=== PATIENT | female | born 1995 | race Caucasian/White ===

== ENCOUNTER 2020-08-20 19:31 | Emergency (ER) | payer SELFPAY ==
[~2020-08-20] VITALS: Ht 170.2 cm; Wt 61.2 kg
[2020-08-20 20:11] VITALS: BP 127/88
[2020-08-20] MEDS ORDERED: IBUPROFEN 400 MG TAB PO ONE (22:05)
[2020-08-20 22:23] VITALS: BP 125/77
== END 2020-08-20 22:23 | disposition home or self-care (01) ==
LOC: MED 19:31
DX: S93.401A Sprain of unspecified ligament of right ankle, initial encounter (principal); W22.8XXA Striking against or struck by other objects, initial encounter; Y93.89 Activity, other specified; Y92.89 Other specified places as the place of occurrence of the external cause; Y99.8 Other external cause status
CPT/HCPCS: 73610; 99283

== ENCOUNTER 2021-01-01 13:33 | Emergency (ER) | payer MEDICAID ==
[~2021-01-01] VITALS: Ht 167.6 cm; Wt 65.8 kg
[2021-01-01 13:44] VITALS: BP 133/80
[2021-01-01] MEDS ORDERED: AZIT250T4 PO (14:43)
[2021-01-01] MEDS ORDERED: PROM118S5 PO (14:43)
[2021-01-01] MEDS ORDERED: IBUP-2213 PO (14:43)
[2021-01-01 15:02] VITALS: BP 133/80
--- NOTE | 2021-01-01 15:03 | NUR ---
Patient discharged with v/s stable. Written and verbal after care instructions given and explained. Patient alert, oriented and verbalized understanding of instructions. Ambulatory with steady gait. All questions addressed prior to discharge. ID band removed. Patient advised to follow up with PMD. Rx of AZITHROMYCIN, IBUPROFEN, PROMETHAZINE/DEXTROMETHORPHAN given. Patient educated on indication of medication including possible reaction and side effects. Opportunity to ask questions provided and answered.
== END 2021-01-01 15:03 | disposition home or self-care (01) ==
LOC: MED 13:33
DX: J06.9 Acute upper respiratory infection, unspecified (principal); J45.909 Unspecified asthma, uncomplicated; Z79.1 Long term (current) use of non-steroidal anti-inflammatories (NSAID); Z79.899 Other long term (current) drug therapy; Z79.2 Long term (current) use of antibiotics; Z88.8 Allergy status to other drugs, medicaments and biological substances
CPT/HCPCS: 71045; 99283

== ENCOUNTER 2021-06-17 20:12 | Emergency (ER) | payer OTHER ==
[~2021-06-17] VITALS: Ht 167.6 cm; Wt 68.0 kg
[~2021-06-17 20:12] MED LIST: AZIT250T4 PO; IBUP-2213 PO; PROM118S5 PO
[2021-06-17 20:19] VITALS: BP 138/74
--- NOTE | 2021-06-17 20:26 | NUR ---
TO LOBBY FOLLOWING TRIAGE
[2021-06-17] MEDS ORDERED: KETOROLAC 15 MG/ML VIAL IM ONE (21:10)
--- NOTE | 2021-06-17 21:57 | NUR ---
PATIENT ELOPED FROM FACILITY. DISCHARGE INSTRUCTIONS NOT GIVEN TO PATIENT. DR. TURK NOTIFIED.
== END 2021-06-17 21:57 | disposition left against medical advice (07) ==
LOC: MED 20:12
DX: S29.9XXA Unspecified injury of thorax, initial encounter (principal); S39.91XA Unspecified injury of abdomen, initial encounter; M25.512 Pain in left shoulder; M25.562 Pain in left knee; V98.8XXA Other specified transport accidents, initial encounter; Y93.89 Activity, other specified; Y92.89 Other specified places as the place of occurrence of the external cause; Y99.8 Other external cause status
CPT/HCPCS: 99281

== ENCOUNTER 2021-06-24 22:14 | Emergency (ER) | payer OTHER ==
[~2021-06-24] VITALS: Ht 167.6 cm; Wt 70.3 kg
[2021-06-24 22:16] VITALS: BP 123/75
--- NOTE | 2021-06-24 22:25 | NUR ---
PT AMBULATORY W STEADY GAIT TO BED 11.
--- NOTE | 2021-06-24 22:33 | NUR ---
Dr. Encarnacion examining patient.
--- NOTE | 2021-06-24 22:47 | NUR ---
PT TAKEN TO CT
[2021-06-25 00:02] VITALS: BP 123/75
--- NOTE | 2021-06-25 00:53 | NUR ---
Patient discharged with v/s stable. Written and verbal after care instructions given and explained. Patient verbalized understanding. Ambulatory with steady gait. All questions addressed prior to discharge. Advised to follow up with PMD.
== END 2021-06-25 00:53 | disposition home or self-care (01) ==
LOC: MED 22:14
DX: S09.90XA Unspecified injury of head, initial encounter (principal); F07.81 Postconcussional syndrome; J45.909 Unspecified asthma, uncomplicated; Z79.1 Long term (current) use of non-steroidal anti-inflammatories (NSAID); Z79.899 Other long term (current) drug therapy; Z79.2 Long term (current) use of antibiotics; Z88.8 Allergy status to other drugs, medicaments and biological substances; V47.5XXA Car driver injured in collision with fixed or stationary object in traffic accident, initial encounter; Y93.89 Activity, other specified; Y92.410 Unspecified street and highway as the place of occurrence of the external cause; Y99.8 Other external cause status
CPT/HCPCS: 70450; 99284

== ENCOUNTER 2022-06-24 13:13 | Emergency (ER) | payer OTHER ==
[~2022-06-24] VITALS: Ht 167.6 cm; Wt 72.6 kg
[2022-06-24 13:27] VITALS: BP 121/71
[2022-06-24] MEDS ORDERED: KETOROLAC 15 MG/ML VIAL IVP ONE (14:40)
[2022-06-24] MEDS ORDERED: PROCHLORPERAZINE 10 MG/2 ML VIAL IVP ONE (14:40)
[2022-06-24] MEDS ORDERED: NACL 0.9% 1,000 ML IV ONE (14:40)
[2022-06-24] MEDS ORDERED: DEXAMETHASONE 10 MG/ML VIAL IVP ONE (14:40)
[2022-06-24] MEDS ORDERED: diphenhydrAMINE 50 MG/ML VIAL IVP ONE (14:40)
[2022-06-24] MEDS ORDERED: LORazepam 2 MG/ML VIAL IVP ONE (15:35)
--- NOTE | 2022-06-24 16:01 | NUR ---
27 y/o F BIB self from home c/o headache x 4 days. Patient A&Ox4, ambulatory, states chronic headache s/p TC 1 year ago. States intermittent headache, 9/10, throbbing/pressure/intermittent, non-radiating. Alleviating factors ice packs. Aggrevating factors "driving, light." Pt reports nausea, vomiting x 2 episodes in last 2 days. +Light sensitivity. Denies recent trauma, injury, falls, fever, cough, SOB, chest pain, abdominal pain, diarrhea, constipation, dysuria. Denies OTC meds. Bed locked in lowest position, side rails x 1. PMH: asthma Meds: albuterol inhaler, naproxen Allergies: reglan Sx: Denies
--- NOTE | 2022-06-24 16:22 | NUR ---
Patient states + relief to headache; 5/10 at this time.
--- NOTE | 2022-06-24 16:34 | NUR ---
Dr. Fonseca reevaluating patient at bedside
[2022-06-24 17:00] VITALS: BP 116/79
== END 2022-06-24 17:00 | disposition home or self-care (01) ==
LOC: MED 13:13
DX: R51.9 Headache, unspecified (principal); R11.10 Vomiting, unspecified; J45.909 Unspecified asthma, uncomplicated; Z79.899 Other long term (current) drug therapy; Z79.1 Long term (current) use of non-steroidal anti-inflammatories (NSAID); Z79.2 Long term (current) use of antibiotics; Z88.8 Allergy status to other drugs, medicaments and biological substances
CPT/HCPCS: 81025; 96361; 96374; 96375; 99284; J0780; J1100; J1200; J1885; J2060; J7030

== ENCOUNTER 2022-12-10 08:35 | Emergency (ER) | payer OTHER ==
[~2022-12-10] VITALS: Ht 167.6 cm; Wt 72.6 kg
[2022-12-10 08:42] VITALS: BP 114/78; PULSE 78; RESP 16; TEMP 98.3; O2SAT 97
[2022-12-10 10:31] LABS: BASOPHILS # (AUTO) 0.1 K/uL (0.00-0.22); BASOPHILS % (AUTO) 0.7 % (0.0-2.0); EOSINOPHILS % (AUTO) 0.3 % (0.0-4.0); HEMATOCRIT 40.3 % (36-48); HEMOGLOBIN 13.8 g/dL (12.0-16.0); LYMPHOCYTES % (AUTO) 25.2 % (20.5-51.1); MEAN CORPUSCULAR HEMOGLOBIN 30 pg (27-31); MEAN CORPUSCULAR HGB CONC 34 g/dL (33-37); MONOCYTES # (AUTO) 0.6 K/uL (0.8-1.0); MONOCYTES % (AUTO) 7.1 % (1.7-9.3); NEUTROPHILS # (AUTO) 5.4 K/uL (1.8-7.7); NEUTROPHILS % (AUTO) 66.7 % (42.2-75.2); PLATELET COUNT (AUTO) 301 K/uL (140-450); RED BLOOD CELL COUNT(AUTO) 4.58 MIL/uL (4.20-5.40); RED CELL DISTRIBUTION WIDTH 12.8 % (11.6-13.7); WHITE BLOOD COUNT (AUTO) 8.1 K/uL (4.8-10.8)
[2022-12-10 10:47] LABS: ALBUMIN 4.3 g/dL (3.4-5.0); ANION GAP 14.6 (8-16); CALCIUM 9.3 mg/dL (8.5-10.1); CARBON DIOXIDE 24.9 mmol/L (21-32); CREATININE 0.9 mg/dL (0.6-1.3); POTASSIUM 3.5 mmol/L (3.5-5.1); TOTAL BILIRUBIN 0.8 mg/dL (0.0-1.0); TOTAL PROTEIN, SERUM 7.6 g/dL (6.4-8.2)
[2022-12-10] MEDS ORDERED: NACL 0.9% 1,000 ML IV ONE (10:55)
[2022-12-10] MEDS ORDERED: ONDANSETRON 4 MG/2 ML VIAL IVP ONE (10:55)
[2022-12-10] MEDS ORDERED: ACETAMINOPHEN 325 MG TAB ONE ×2 (11:56→11:57)
[2022-12-10] MEDS ORDERED: ONDA-188 SL (12:05)
[2022-12-10] MEDS ORDERED: ACET-10509 PO (12:05)
[2022-12-10] MEDS ORDERED: [UNRECOGNIZED DRUG - CODE] PO (12:05)
[2022-12-10] MEDS ORDERED: DOXY1TAB4 PO (12:05)
[2022-12-10 12:22] VITALS: BP 118/92; PULSE 84; RESP 13; TEMP 98.5; O2SAT 100
[2022-12-10] MEDS ORDERED: ACETAMINOPHEN 325 MG TAB PO ONE (12:25)
== END 2022-12-10 12:20 | disposition home or self-care (01) ==
LOC: MED 08:35
DX: O21.8 Other vomiting complicating pregnancy (principal); O99.511 Diseases of the respiratory system complicating pregnancy, first trimester; J45.909 Unspecified asthma, uncomplicated; Z3A.01 Less than 8 weeks gestation of pregnancy; Z79.899 Other long term (current) drug therapy; Z79.1 Long term (current) use of non-steroidal anti-inflammatories (NSAID); Z79.2 Long term (current) use of antibiotics
CPT/HCPCS: 36415; 76817; 80053; 81002; 81025; 83690; 84702; 85025; 86900; 86901; 96361; 96374; 99285; J2405; Q0092; J7030

== ENCOUNTER 2022-12-15 14:17 | Inpatient (IN) | payer OTHER ==
[~2022-12-15] VITALS: Ht 170.2 cm; Wt 75.7 kg
[~2022-12-15 14:17] MED LIST changes: +ACET-10509 PO; +DOXY1TAB4 PO; +ONDA-188 SL; +[UNRECOGNIZED DRUG - CODE] PO
[2022-12-15 14:26] VITALS: BP 112/82; PULSE 81; RESP 17; TEMP 97.6; O2SAT 98
[2022-12-15] MEDS ORDERED: DEXT 5% / NACL 0.9% 500 ML IV ONE ×2 (15:45→18:55)
[2022-12-15] MEDS ORDERED: ONDANSETRON 4 MG/2 ML VIAL IVP ONE ×2 (15:45→17:30)
[2022-12-15] MEDS ORDERED: NACL 0.9% 1,000 ML IV ONE (15:45)
[2022-12-15 16:03] LABS: APPEARANCE,URINE CLEAR (CLEAR); BILIRUBIN,URINE 1+ (NEGATIVE); BLOOD, URINE NEGATIVE (NEGATIVE); COLOR,URINE YELLOW (YELLOW); LEUKOCYTE ESTERASE ,URINE NEGATIVE (NEGATIVE); NITRITE, URINE NEGATIVE (NEGATIVE); PH,URINE 7.5 (5.0-9.0); PROTEIN,URINE TRACE (NEGATIVE); UGLUCOSE NEGATIVE (NEGATIVE); UROBILINOGEN,URINE 0.2 EU/dL (0.2 - 1)
[2022-12-15 16:04] LABS: BASOPHILS # (AUTO) 0.1 K/uL (0.00-0.22); BASOPHILS % (AUTO) 0.6 % (0.0-2.0); EOSINOPHILS % (AUTO) 0.2 % (0.0-4.0); HEMATOCRIT 39.5 % (36-48); HEMOGLOBIN 13.5 g/dL (12.0-16.0); LYMPHOCYTES # (AUTO) 1.7 K/uL (2.5-16.5); LYMPHOCYTES % (AUTO) 17.1 % (20.5-51.1); MEAN CORPUSCULAR HEMOGLOBIN 30 pg (27-31); MEAN CORPUSCULAR HGB CONC 34 g/dL (33-37); MEAN CORPUSCULAR VOLUME 87.7 fL (80-94); MONOCYTES # (AUTO) 0.6 K/uL (0.8-1.0); MONOCYTES % (AUTO) 6.3 % (1.7-9.3); NEUTROPHILS # (AUTO) 7.5 K/uL (1.8-7.7); NEUTROPHILS % (AUTO) 75.8 % (42.2-75.2); PLATELET COUNT (AUTO) 286 K/uL (140-450); RED BLOOD CELL COUNT(AUTO) 4.51 MIL/uL (4.20-5.40); RED CELL DISTRIBUTION WIDTH 12.5 % (11.6-13.7); WHITE BLOOD COUNT (AUTO) 9.9 K/uL (4.8-10.8)
[2022-12-15 16:09] LABS: BACTERIA,URINE FEW /HPF (None Seen); ICTOTEST NEGATIVE (NEGATIVE); RBC,URINE 0-5 /HPF (0-5); WBC,URINE 0-5 /HPF (0-5)
[2022-12-15 16:10] LABS: SQUAMOUS EPITHELIAL CELL,UR 4-10 (MOD) /LPF (0-3 (FEW))
[2022-12-15 16:41] LABS: ALBUMIN 4.3 g/dL (3.4-5.0); ANION GAP 17.5 (8-16); CARBON DIOXIDE 21.4 mmol/L (21-32); CREATININE 0.7 mg/dL (0.6-1.3); TOTAL BILIRUBIN 0.5 mg/dL (0.0-1.0); TOTAL PROTEIN, SERUM 7.9 g/dL (6.4-8.2)
[2022-12-15 17:15] LABS: POTASSIUM 2.9 mmol/L (3.5-5.1)
[2022-12-15] MEDS ORDERED: KCL 20 MEQ IN 100 mL PREMIX 200 ML IV ONE (17:40)
[2022-12-15 17:41] VITALS: O2SAT 98
[2022-12-15] MEDS ORDERED: MAG SULF 2000 MG/WATER PREMIX 50 ML IV ONE (17:55)
[2022-12-15] MEDS ORDERED: FAMOTIDINE 20 MG/2 ML VIAL IVP ONE (19:05)
[2022-12-15] MEDS ORDERED: POTASSIUM CHLORIDE 20% 40 MEQ/15 ML UDC PO ONE (19:10)
[2022-12-15 20:16] VITALS: O2SAT 98
[2022-12-15] MEDS ORDERED: ACETAMINOPHEN 325 MG TAB PO PRN (20:35)
[2022-12-15] MEDS ORDERED: HYDROcodone/APAP 5/325 MG 1 TAB TAB PO PRN (20:35)
[2022-12-15] MEDS ORDERED: NACL 0.9% 1,000 ML IV SCH (20:35)
[2022-12-15] MEDS ORDERED: MORPHINE SULFATE 4 MG/ML SYR IVP PRN (20:35)
[2022-12-15] MEDS ORDERED: diphenhydrAMINE 50 MG/ML VIAL IVP ONE (20:50)
[2022-12-15 22:55] VITALS: BP 108/69; PULSE 76; RESP 16; RESP 18; TEMP 97.5; O2SAT 96; O2SAT 98
[2022-12-15] MEDS ORDERED: PROCHLORPERAZINE 10 MG/2 ML VIAL IVP PRN (23:05)
[2022-12-15 23:47] VITALS: PULSE 76; RESP 16; O2SAT 98
[2022-12-16] VITALS: PULSE 72
[2022-12-16] MEDS ORDERED: LORazepam 0.5 MG TAB PO PRN (00:45)
[2022-12-16 04:00] VITALS: BP 98/55; PULSE 59; PULSE 60; RESP 17; TEMP 97.2; O2SAT 93
[2022-12-16 07:01] LABS: BASOPHILS # (AUTO) 0.1 K/uL (0.00-0.22); BASOPHILS % (AUTO) 0.7 % (0.0-2.0); EOSINOPHILS # (AUTO) 0.1 K/uL (0-0.4); EOSINOPHILS % (AUTO) 1.8 % (0.0-4.0); HEMATOCRIT 33.3 % (36-48); HEMOGLOBIN 11.6 g/dL (12.0-16.0); LYMPHOCYTES # (AUTO) 2.2 K/uL (2.5-16.5); LYMPHOCYTES % (AUTO) 27.2 % (20.5-51.1); MEAN CORPUSCULAR HEMOGLOBIN 31 pg (27-31); MEAN CORPUSCULAR HGB CONC 35 g/dL (33-37); MEAN CORPUSCULAR VOLUME 87.7 fL (80-94); MONOCYTES # (AUTO) 0.8 K/uL (0.8-1.0); MONOCYTES % (AUTO) 9.6 % (1.7-9.3); NEUTROPHILS # (AUTO) 4.9 K/uL (1.8-7.7); NEUTROPHILS % (AUTO) 60.7 % (42.2-75.2); PLATELET COUNT (AUTO) 239 K/uL (140-450); RED BLOOD CELL COUNT(AUTO) 3.79 MIL/uL (4.20-5.40); RED CELL DISTRIBUTION WIDTH 12.7 % (11.6-13.7); WHITE BLOOD COUNT (AUTO) 8.1 K/uL (4.8-10.8)
[2022-12-16 07:35] LABS: ANION GAP 13.2 (8-16); CARBON DIOXIDE 19.9 mmol/L (21-32); CREATININE 0.6 mg/dL (0.6-1.3); MAGNESIUM 1.9 mg/dL (1.8-2.4); POTASSIUM 3.1 mmol/L (3.5-5.1); TOTAL BILIRUBIN 0.4 mg/dL (0.0-1.0); TOTAL PROTEIN, SERUM 5.8 g/dL (6.4-8.2)
== END 2022-12-16 05:48 | disposition left against medical advice (07) | DRG 566 ==
LOC: MED 14:17 → MTU 20:34
PROVIDERS: ADMIT Student in an Organized Health Care Education/Training Program; ATTEND Student in an Organized Health Care Education/Training Program
DX: O21.0 Mild hyperemesis gravidarum (principal); R71.0 Precipitous drop in hematocrit; E86.1 Hypovolemia; J45.909 Unspecified asthma, uncomplicated; Z53.29 Procedure and treatment not carried out because of patient's decision for other reasons; Z88.8 Allergy status to other drugs, medicaments and biological substances
CPT/HCPCS: 36415; 80053; 81001; 83690; 83735; 84702; 85025; 87081; 93005; 96361; 96365; 96366; 96375; 99285; J0780; J1200; J2405; J3475; J3480; J3490